=== PATIENT | female | born 1945 | race Caucasian/White ===

== ENCOUNTER → 2018-06-15 | Outpatient (CLI) | payer MEDICARE ==
[~2018-06-15] MED LIST: ASP81TEC PO; ASPI-586 PO; ATEN25TA PO; ATOR40TA70 PO; CARV3.122 PO; CLD600T PO; DIPH50CA33 PO; DULO60CA58 PO; GABA-488 PO; HCTZ12.5T PO; HYDR-3820 PO; LISI10TA2 PO; LISI20TA PO; LOVA20TA2 PO; NAPR220T76 PO; OMEG1CAP74 PO; PANT40TA3 PO; RABE20TA PO; TEMA15CA PO; TRAZ-190 PO; UBID30CA9 PO; VITAMIN B 12 PO
[2018-06-15 16:40] LABS: ABSOLUTE RETIC # 24 10e9/L (24-90); BASOPHILS % (AUTO) 0 % (0-10); EOSINOPHILS # (AUTO) 0.1 10^3/uL (0.0-0.3); EOSINOPHILS % (AUTO) 2 % (0-10); HEMATOCRIT 30 % (35-52); HEMOGLOBIN 9.8 G/DL (11.5-16.0); LYMPHOCYTES # (AUTO) 1.8 X 10^3 (1.0-4.0); LYMPHOCYTES % (AUTO) 31 % (12-44); MEAN CORPUSCULAR HEMOGLOBIN 29 PG (25-34); MEAN CORPUSCULAR HGB CONC 33 G/DL (32-36); MEAN CORPUSCULAR VOLUME 89 FL (80-99); MEAN PLATELET VOLUME 9.1 FL (7.4-10.4); MONOCYTES # (AUTO) 0.5 X 10^3 (0.0-1.0); MONOCYTES % (AUTO) 9 % (0-12); NEUTROPHILS # (AUTO) 3.5 X 10^3 (1.8-7.8); NEUTROPHILS % (AUTO) 59 % (42-75); PLATELET COUNT 307 10^3/uL (130-400); RED BLOOD COUNT 3.35 10^6/uL (4.35-5.85); RED CELL DISTRIBUTION WIDTH 13.6 % (10.0-14.5); RETICULOCYTE % 0.72 % (0.50-2.40); WHITE BLOOD COUNT 5.9 10^3/uL (4.3-11.0)
[2018-06-15 17:03] LABS: ALANINE AMINOTRANSFERASE 8 U/L (0-55); ALBUMIN 3.2 GM/DL (3.2-4.5); ALKALINE PHOSPHATASE 81 U/L (40-136); BILIRUBIN,TOTAL 0.5 MG/DL (0.1-1.0); BUN/CREATININE RATIO 11; CALCIUM 8.9 MG/DL (8.5-10.1); CARBON DIOXIDE 25 MMOL/L (21-32); CHLORIDE 99 MMOL/L (98-107); CREATININE SERUM 0.66 MG/DL (0.60-1.30); GFR ESTIMATED > 60; GLUCOSE 125 MG/DL (70-105); POTASSIUM 3.9 MMOL/L (3.6-5.0); SODIUM 133 MMOL/L (135-145)
[2018-06-15 17:22] LABS: BAND NEUTROPHILS 0 %; BASOPHILS % (MANUAL) 0 %; EOSINOPHILS % (MANUAL) 0 %; LYMPHOCYTES % (MANUAL) 24 %; MONOCYTES % (MANUAL) 7 %; NEUTROPHILS % (MANUAL) 69 %; RBC MORPH NORMAL
[2018-06-15 17:26] LABS: ERYTHROCYTE SEDIMENTATION RATE > 140 MM/HR (0-30)
--- NOTE | 2018-06-16 16:46 | Physician Query-Final Dx ---
MAGDA UREÑA 06/16/18 1646: Clinic Account Progress/Dx Physician Query: Please give a diagnosis for the HgA1c test thank you Date of Service Jun 15, 2018 at 16:06 HEAVENLY MONTILLA DO 06/17/18 1124: Clinic Account Progress/Dx Physician Query: Please give diagnosis DIAGNOSIS: Diagnosis Hyperglycemia MAGDA UREÑA Jun 16, 2018 16:46 HEAVENLY MONTILLA DO Jun 17, 2018 11:24
[2018-06-17 10:15] LABS: FREE T4 (FREE THYROXINE) 1.31 NG/DL (0.70-1.48)
== END ==
LOC: LAB 16:06
PROVIDERS: ATTEND Internal Medicine
DX: D64.9 Anemia, unspecified (principal); R63.4 Abnormal weight loss; R73.9 Hyperglycemia, unspecified
CPT/HCPCS: 36415; 80053; 82728; 83036; 83540; 83615; 84439; 84443; 85007; 85027; 85045; 85652

== ENCOUNTER 2018-06-17 06:14 | Outpatient (CLI) | payer MEDICARE ==
[~2018-06-17] VITALS: Ht 166.4 cm; Wt 61.7 kg
[~2018-06-17 06:14] MED LIST changes: -ASPI-586 PO; -ATOR40TA70 PO; -CARV3.122 PO; -LISI10TA2 PO; -TRAZ-190 PO
[2018-06-17] MEDS ORDERED: LISI10TA2 PO (12:16)
[2018-06-17] MEDS ORDERED: ASPI-586 PO (12:16)
[2018-06-17] MEDS ORDERED: TRAZ-190 PO (12:16)
[2018-06-17] MEDS ORDERED: ATOR40TA70 PO (12:16)
[2018-06-17] MEDS ORDERED: CARV3.122 PO (12:16)
== END 2018-06-17 12:24 ==
LOC: PREOP 06:14
PROVIDERS: ATTEND Surgery
DX: Z01.818 Encounter for other preprocedural examination (principal)

== ENCOUNTER 2018-06-18 08:43 | Day surgery (SDC) | payer MEDICARE ==
[~2018-06-18] VITALS: Ht 166.4 cm; Wt 61.7 kg
[~2018-06-18 08:43] MED LIST changes: -IOHEXOL 350 MG/ML 150 ML (OMNIPAQUE 350) VIAL IV ONE; -NS 250 ML (IVPB) BAG IV ONE
[2018-06-18] MEDS ORDERED: LACTATED RINGERS 1,000 ML IV ONE (09:19)
[2018-06-18] MEDS ORDERED: PROPOFOL INJECTION 50 ML IV ONE (09:33)
[2018-06-18] MEDS ORDERED: MIDAZOLAM 2 MG/2 ML (VERSED) VIAL ONE (09:33)
--- NOTE | 2018-06-18 09:39 | Progress Note-Pre Operative ---
Pre-Operative Progress Note H&P Reviewed The H&P was reviewed, patient examined and no changes noted. Time Seen by Provider: 09:33 Date H&P Reviewed: Jun 18, 2018 Time H&P Reviewed: 09:35 Pre-Operative Diagnosis: anemia, hx of gastric ulcer YANNICK LEONARD DO Jun 18, 2018 09:39
[2018-06-18] MEDS ORDERED: LACTATED RINGERS 1,000 ML IV STA ×2 (09:46)
[2018-06-18 10:00] VITALS: BP 154/89
[2018-06-18] MEDS ORDERED: HURRICAINE EXT TUBE (BENZOCAINE) XX PRN ×2 (10:00)
[2018-06-18] MEDS ORDERED: proPOfol 200 MG/20 ML (DIPRIVAN) VIAL IV ONE (10:01)
[2018-06-18] MEDS ORDERED: LABETALOL HCL 20 MG/4 ML VIAL ONE (10:10)
[2018-06-18] MEDS ORDERED: HURRICAINE EXT TUBE (BENZOCAINE) ONE (10:17)
--- NOTE | 2018-06-18 10:30 | Progress Note-Post Operative ---
Post-Operative Progess Note Surgeon (s)/Quality Lab Technician (s) Surgeon YANNICK LEONARD DO Quality Lab Technician: none Pre-Operative Diagnosis anemia, hx of gastric ulcer Post-Operative Diagnosis Anemia Gastritis Gastric Polyps Hiatal Hernia Internal hemorrhoids Procedure & Operative Findings Date of Procedure 06/18/18 Procedure Performed/Findings EGD with bx EGD with polypectomy Colonoscopy Anesthesia Type IV sedation by SEARCH ENGINE OPTIMIZATION MANAGER Estimated Blood Loss Estimated blood loss (mL): scant Specimens/Packing Specimens Removed Antral bx Gastric Polyp YANNICK LEONARD DO Jun 18, 2018 10:30
--- NOTE | 2018-06-18 10:31 | Endoscopy Discharge Instruct ---
Endo Procedure/Findings Findings 1.: Gastritis 2.: Polyp (Gastric) 3.: Hiatal Hernia 4.: Internal Hemorrhoids Discharge Instructions - Activity: You might feel a little sleepy until tomorrow. This is due to the medicine you received to relax you. Until tomorrow, you should: NOT drive a car, operate machinery or power tools. NOT drink any alcoholic beverages. NOT make any important decisions or sign importortant papers. Do not return to work until tomorrow, unless otherwise instructed. Resume previous activities tomorrow. Diet: Start by taking liquids. If you tolerate liquids, advance to solid food. Make appointment for one week. Notify Physician - If you experience excessive bleeding, unusual abdominal pain, fever, or chest pain, contact your doctor immediately. Follow-Up: - I have received and understand the above instructions and will call my doctor if I have any further questions. Patient Signature Date Nurse Signature Other (Relationship) YANNICK LEONARD DO Jun 18, 2018 10:31
[2018-06-18 10:35] VITALS: BP 155/78
--- NOTE | 2018-06-18 10:40 | Anesthesia-General Post-Op ---
MAC Patient Condition Mental Status/LOC: Same as Preop Cardiovascular: Satisfactory Nausea/Vomiting: Absent Respiratory: Satisfactory Pain: Controlled Complications: Absent Post Op Complications Complications None Follow Up Care/Instructions Patient Instructions None needed. Anesthesiology Discharge Order Discharge Order Patient is doing well, no complaints, stable vital signs, no apparent adverse anesthesia problems. No complications reported per nursing. HAILEY VERMA CRNA Jun 18, 2018 10:40
[2018-06-18 11:15] VITALS: BP 172/79
[2018-06-18 11:35] VITALS: BP 172/79
--- NOTE | 2018-06-18 22:25 | OPERATIVE REPORT ---
DATE OF SERVICE: 06/18/2018 PREOPERATIVE DIAGNOSES: Anemia, history of gastric ulcer. POSTOPERATIVE DIAGNOSES: 1. Gastritis. 2. Gastric polyp. 3. Internal hemorrhoids. 4. Anemia. PROCEDURES: 1. EGD with biopsy. 2. EGD with polypectomy. 3. Colonoscopy. SURGEON: Jewel Fisher DO. TRANSFORMATION SPECIALIST: None. ANESTHESIA: IV sedation by the ORTHOPEDIC ASSISTANT. BLOOD LOSS: Scant. SPECIMEN: 1. Biopsy from antrum. 2. Gastric polyp. FLUIDS: Per anesthesia. POSTOPERATIVE CONDITION: Stable. INDICATION FOR PROCEDURE: The patient is a 73-year-old female who has some anemia that was new and some weight loss, history of gastric ulcer and needed a workup. FINDINGS: The patient had some gastritis. She had some gastric polyps, small hiatal hernia and then she had some internal hemorrhoids seen on colonoscopy, but no other obvious pathology. PROCEDURE NOTE: After informed consent was obtained, the patient was brought to the endoscopy suite, placed on bed in left lateral decubitus position. She was administered IV sedation by the ORTHOPEDIC ASSISTANT who then monitored her vitals the entire time, heart rate, blood pressure and pulse ox and the scope was inserted down the mouth into the esophagus and down in the stomach and the stomach noted small little areas of blood, but did not see any ulcers or active bleeding. Pushed through into the duodenum, took a picture of the first portion and second portion of duodenum. They looked fine. There were no ulcers and there was no spot of blood. Spots of blood were only in the stomach. Saw a bunch of gastric polyps, one of them looked like it may have had some bleeding in the past. She definitely did have some gastritis, took a biopsy of the antrum and then removed a polyp entirely with the biopsy forceps. Retroflexed and saw a hiatal hernia, looked up into the esophagus, did not see any ulcers or any bleeding from the esophagus and then slowly pulled the scope out looking in the distal esophagus, mid and upper esophagus as well and the mouth and did not see any obvious sign of bleeding. Switched gloves and switched cameras and went to the other side and started the colonoscopy. Pushed the scope in all the way to about 140 cm, got all the way to the cecum, took a picture of appendiceal orifice and noted the ileocecal valve and then slowly withdrew the scope insufflating to look circumferentially at the thomason looking at the cecum, up the ascending colon to the hepatic flexure, then down the transverse colon, the splenic flexure, then down the descending colon into the sigmoid and finally into the rectum. Retroflexed the rectal vault. She had some grade II internal hemorrhoids. No other obvious pathology was seen. Had removed the scope. The patient tolerated the procedure. She was recovered in endoscopy suite and then sent home. Job ID: [id number] DocumentID: [id number] Dictated Date: 06/18/2018 16:43:24 Skewer Up Date: 06/18/2018 22:24:34 Dictated By: DO TED LANDAVERDE
== END 2018-06-18 11:30 | disposition home or self-care (01) ==
LOC: ENDO 08:43
PROVIDERS: ATTEND Surgery
DX: K29.70 Gastritis, unspecified, without bleeding (principal); K31.7 Polyp of stomach and duodenum; K44.9 Diaphragmatic hernia without obstruction or gangrene; K64.1 Second degree hemorrhoids; R63.4 Abnormal weight loss; D64.9 Anemia, unspecified; I10 Essential (primary) hypertension; I25.10 Atherosclerotic heart disease of native coronary artery without angina pectoris; Z87.891 Personal history of nicotine dependence; Z95.5 Presence of coronary angioplasty implant and graft; Z79.82 Long term (current) use of aspirin
CPT/HCPCS: 43239; 43250; G0121

== ENCOUNTER → 2018-06-18 | Outpatient (CLI) | payer MEDICARE ==
[~2018-06-18] MED LIST changes: +ASPI-586 PO; +ATOR40TA70 PO; +CARV3.122 PO; +IOHEXOL 350 MG/ML 150 ML (OMNIPAQUE 350) VIAL IV ONE; +LISI10TA2 PO; +NS 250 ML (IVPB) BAG IV ONE; +TRAZ-190 PO
--- NOTE | 2018-06-18 09:11 | Diagnostic Imaging Report ---
Indication: Unexplained weight loss with pain in the abdomen and dysphagia. Technique: Intravenous contrast was administered. CT neck, chest, abdomen and pelvis performed. There are no priors for comparison. Soft tissue neck: The nasopharynx, oropharynx and hypopharynx appeared grossly unremarkable. Motion degrades some of the exam sensitivity. No appreciable lymphadenopathy. No evidence for an abscess, hematoma or other fluid collection. The prevertebral and retropharyngeal spaces were unremarkable. The visualized intracranial structures unremarkable. The bony skull base unremarkable. The orbits and paranasal sinuses as well as mastoids unremarkable. The parotid, submandibular and thyroid glands unremarkable. No inflammatory process. The osseous structures revealed a multilevel cervical ACDF and spondylosis but no acute or suspect bony abnormality. Chest: Patient has minute subcentimeter dependent pleural effusions without evidence for loculation. There is no pericardial effusion. The aorta is patent and nonaneurysmal. No dominant lung mass or suspicious pulmonary nodularity. There is very trace partial atelectatic changes without findings suggestive of pneumonia or pulmonary edema. There is no hilar or mediastinal lymphadenopathy. There is an old T6 superior endplate compression fracture at its middle to anterior one third, resulting in 30% stature loss. The bone appears sclerotic and healed. No adjacent edema or hemorrhage. No retropulsion. Multilevel spondylosis with no acute-appearing osseous or chest wall pathology. Abdomen and pelvis: The liver, spleen, adrenals, pancreas and gallbladder were unremarkable. The kidneys were unobstructed and nonacute. The atherosclerotic aorta is patent and nonaneurysmal and unobstructed. There is mesenteric and renal vascular calcifications without findings of acute end organ ischemia. The partially visualized pelvic osseous structures appeared nonacute. There is lumbar spondylosis with anterolisthesis of L3 on 4 and L4 on L5 presumed on a degenerative basis with no acute or chronic lumbar fracture revealed. There is no mesenteric or retroperitoneal lymphadenopathy. There is no bowel obstruction. No small or large bowel wall thickening, there was no perienteric or pericolonic edema. The urinary bladder was unremarkable. There is no adnexal lesion. No abdominal pelvic mesenteric or retroperitoneal lymphadenopathy. No abdominal wall defect, fluid collection or hernia. Impression: CT angio neck: No mass, adenopathy, fluid collection or acute finding. CT chest: Minute pleural effusions, trace atelectasis, otherwise negative. No evidence for primary or secondary malignancy. Abdomen and pelvis: No adenopathy, mass, inflammatory process or obstructive features. No acute-appearing abnormality. Nonaneurysmal atherosclerosis without findings of end organ ischemia. Spondylosis and grade 1 listhesis, an old T-spine fracture noted, no acute osseous pathology evident. Dictated by: Dictated on workstation # [id number]
== END ==
LOC: RAD 07:20
PROVIDERS: ATTEND Internal Medicine
DX: I70.90 Unspecified atherosclerosis (principal); M47.816 Spondylosis without myelopathy or radiculopathy, lumbar region; M43.16 Spondylolisthesis, lumbar region; S22.059A Unspecified fracture of T5-T6 vertebra, initial encounter for closed fracture; R13.19 Other dysphagia; R10.84 Generalized abdominal pain
CPT/HCPCS: 70491; 71260; 74176

== ENCOUNTER 2018-06-26 12:10 | Outpatient (RCR) | payer MEDICARE ==
[2018-06-16] MEDS: IRON SUCROSE 200 MG/10 ML (VENOFER) VIAL IV ONE (11:55)
[2018-06-16] MEDS: IRON SUCROSE 200 MG/10 ML (VENOFER) VIAL IV SCH ×3 (11:55→13:09)
[2018-06-16 12:15] VITALS: BP 130/74
[2018-06-18 10:45] VITALS: BP 158/78
[2018-06-18] MEDS: IRON SUCROSE 200 MG/10 ML (VENOFER) VIAL IV SCH (10:50)
[2018-06-22] MEDS: IRON SUCROSE 200 MG/10 ML (VENOFER) VIAL IV SCH (15:20)
[2018-06-22 16:00] VITALS: BP 131/83
[2018-06-24] MEDS: IRON SUCROSE 200 MG/10 ML (VENOFER) VIAL IV SCH (11:38)
[2018-06-24 12:08] VITALS: BP 139/78
[~2018-06-26] VITALS: Ht 166.4 cm; Wt 61.7 kg
[2018-06-26] MEDS: IRON SUCROSE 200 MG/10 ML (VENOFER) VIAL IV SCH (12:26)
[2018-06-26 13:05] VITALS: BP 121/73
== END 2018-06-26 13:05 | disposition home or self-care (01) ==
LOC: SDC 12:10
PROVIDERS: ATTEND Internal Medicine
DX: D50.9 Iron deficiency anemia, unspecified (principal)
CPT/HCPCS: 96365

== ENCOUNTER → 2018-06-30 | Outpatient (CLI) | payer MEDICARE | LOC: LAB 09:28 | PROVIDERS: ATTEND Physician Assistant | DX: Z01.812 Encounter for preprocedural laboratory examination (principal) | CPT/HCPCS: 36415; 85652; 86141 ==